=== PATIENT | female | born 1985 | race African-American/Black ===

== ENCOUNTER 2017-05-23 11:48 | Observation (INO) | payer SELFPAY ==
[2017-05-23] MEDS ORDERED: Mag-Al 1200 mg/1200 mg/30 ML UDCUP ONE (12:09)
[2017-05-23] MEDS ORDERED: Famotidine 20 MG TAB ONE (12:09)
[2017-05-23] MEDS ORDERED: Lidocaine Viscous Sol 2% 15 ml UD Cup ONE (12:09)
[2017-05-23 12:19] LABS: #Eosinphils 0.2 thou/uL (0.0-0.7); #Lymphocytes 1.4 thou/uL (1.20-3.40); #Monocytes 0.7 thou/uL (0.11-0.59); #Neutrophils 7.4 thou/uL (1.40-6.50); %Basophils 0.2 % (0.0-1.0); %Eosinophils 1.8 % (0.0-10.0); %Lymphocytes 14.8 % (21.0-51.0); %Monocytes 6.7 % (0.0-10.0); %Neutrophils 76.5 % (42.0-75.0); Hemoglobin 14.3 g/dL (12.0-16.0); Mean Corpuscular HGB CONC 33.2 g/dL (32.0-36.0); Mean Corpuscular Hemoglobin 30.5 pg (27.0-31.0); Mean Corpuscular Volume 91.7 fl (81.0-99.0); Mean Platelet Volume 7.4 fL (7.4-10.4); Platelet Count 264 thou/uL (130-400); RBC Distribution Width 11.4 % (11.5-14.5); White Blood Cell (WBC) Count 9.7 thou/uL (4.8-10.8)
[2017-05-23 12:36] LABS: Bilirubin Moderate (Negative); Blood, Urine Negative (Negative); Clarity CLOUDY (Clear); Glucose, Urine (Dipstick) Negative (Negative); Leukocyte Large (Negative); Nitrite Negative (Negative); Protein, Urine (Dipstick) Negative (Neg-Trace); Specific Gravity, Urine 1.024 (1.002-1.036)
[2017-05-23 12:37] LABS: BHCG - Serum Negative (NEGATIVE); Pregs Control Background? CLEAR/WHITE (CLR/WHITE); Pregs Control Bar Appear? YES (CONTROL BAR)
[2017-05-23 12:39] LABS: ALT (SGPT) 345 U/L (8-55); AST (SGOT) 496 U/L (5-34); Albumin 4.3 g/dL (3.5-5.0); Alkaline Phosphatase 131 U/L (40-150); Anion Gap 14 mmol/L (10-20); BUN (Urea Nitrogen) 8 mg/dL (7.0-18.7); Bilirubin, Total 2.7 mg/dL (0.2-1.2); Calc. Creatinine Clearance 0 mL/min (70-130); Calcium 9.3 mg/dL (7.8-10.44); Carbon Dioxide 23 mmol/L (22-29); Chloride 105 mmol/L (98-107); Estimated GFR-MDRD Greater than 90; Globulin 3.2 g/dL (2.4-3.5); Glucose 113 mg/dL (70-105); Lipase 26 U/L (8-78); Potassium 3.6 mmol/L (3.5-5.1); Protein, Total 7.5 g/dL (6.0-8.3); Sodium 138 mmol/L (136-145)
[2017-05-23 12:43] LABS: Bacteria/HPF 2+ HPF (None Seen); Hyaline Casts/LPF 4-6 HYALINE CAST LPF (0-3 Hyaline); Pathc Cast-AUWi Flag 1.01 (0-2.49)
[2017-05-23 12:53] LABS: RBC/HPF None Seen HPF (0-3); Renal Epithelial None Seen HPF (0-3); Transitional Epithelial NONE SEEN HPF (0-3)
--- NOTE | 2017-05-23 13:36 | ULT ---
RIGHT UPPER QUADRANT PAIN: HISTORY: Nausea. DATE: 05/23/17. FINDINGS: Multiple longitudinal and transverse images of the right upper quadrant of the abdomen are obtained u sing a multihertz curvilinear transducer. Real-time and color images are used to evaluate the right upper quadrant. The liver is unremarkable. The abdominal aorta and inferior vena cava are unremarkable. The gallbladder contains numerous echogenic and shadowing foci compatible with numerous gallstones. There may also be a possible gallbladder polyp present. No evidence of gallbladder wall thickening s een. The common bile duct is dilated measuring up to 9 mm. This may represent a distal common bile duct c alculus. Visualized portion of the pancreas is unremarkable. The right kidney is unremarkable. IMPRESSION: Cholelithiasis with possible choledocholithiasis. No significant evidence of ascites is seen. POS: ISIDRO
[2017-05-23] MEDS ORDERED: Iothalamate Meglumine 60% 50 ML VIAL FS ONE (14:00)
[2017-05-23] MEDS ORDERED: Bupivacaine/Epinephrine 0.25% 30 ML VIAL ONE (14:00)
[2017-05-23] MEDS ORDERED: Fentanyl 250 MCG/5 ML VIAL ONE (14:03)
[2017-05-23] MEDS ORDERED: CEFAZOLIN/Water 2 GM/20 ML SYRINGE ONE (14:34)
[2017-05-23] MEDS ORDERED: Midazolam HCl 2 mg/2 ml Vial ONE (14:47)
[2017-05-23] MEDS ORDERED: Ondansetron HCl/PF 4 MG/2 ML Vial IVP PRN (14:53)
[2017-05-23] MEDS ORDERED: HYDROmorphone 0.5 MG/0.5 ML SYRINGE ONE (14:53)
[2017-05-23] MEDS ORDERED: Promethazine HCl 25 MG/ML VIAL IM PRN (14:53)
[2017-05-23] MEDS ORDERED: Promethazine HCl 25 MG/ML VIAL SLOW IVP PRN (14:53)
[2017-05-23] MEDS ORDERED: PROPOFOL 200 MG/20 ML VIAL ONE (15:40)
[2017-05-23] MEDS ORDERED: Glycopyrrolate 0.2 MG/ML 5 ML SYRINGE ONE (15:40)
[2017-05-23] MEDS ORDERED: Succinylcholine Chloride 20 MG/ML 10 ml SYRINGE FS ONE (15:40)
[2017-05-23] MEDS ORDERED: Esmolol 100 MG/10 ML VIAL ONE (15:40)
[2017-05-23] MEDS ORDERED: Ondansetron HCl/PF 4 MG/2 ML Vial ONE (15:40)
[2017-05-23] MEDS ORDERED: Lidocaine 1% PF 5 ML VIAL ONE (15:40)
[2017-05-23] MEDS ORDERED: Dexamethasone 20 MG/5 ML VIAL ONE (15:40)
--- NOTE | 2017-05-23 16:43 | HP ---
CHIEF COMPLAINT: Abdominal pain. HISTORY OF PRESENT ILLNESS: Ms. Sheehan is a 31-year-old woman, who presented to the emergency room wi unrelenting epigastric pain radiating to her back. She had a previous episode in February, but thi s resolved on its own. The current episode woke her up at 3:00 a.m. and has been persistent since at time. She has had nausea, but no vomiting. No jaundice or icterus. The pain is made worse by mo ving around. Evaluation in the Emergency Room was positive for elevated LFTs and a dilated common bi le duct with gallstones in the gallbladder. The patient has received pain medication in the Emergenc y Room and is now feeling better. PAST MEDICAL HISTORY: None. PAST SURGICAL HISTORY: None. PSYCHIATRIC HISTORY: History of depression and anxiety with a suicidal gesture in 2012. SOCIAL HISTORY: She does not smoke, drink or use illicit drugs. FAMILY HISTORY: Diabetes and hypertension. Her aunt had heart problems and after gallbladder s urgery as a result of her heart disease. ALLERGIES: The patient has no known drug allergies. OUTPATIENT MEDICATIONS: Include Prozac daily. REVIEW OF SYSTEMS: Ten system review of systems is negative except per HPI. PHYSICAL EXAMINATION: VITAL SIGNS: Temperature 98.4, heart rate 100, blood pressure 118/68, respirations 20, 97% saturated on room air. GENERAL: Reveals a slightly anxious appearing young woman, in no acute distress. She is not flushed or toxic in appearance. She is not jaundiced or icteric. HEENT: Unremarkable. NECK: Supple, without lymphadenopathy or thyroid nodules. HEART: Regular in its rate and rhythm without murmurs, rubs or gallops. LUNGS: Clear to auscultation bilaterally with good air entry. She does not have any pain with deep inspiration. ABDOMEN: Soft, nontender and nondistended. She states that previously she was tender to palpation i n the epigastrium and right upper quadrant, but that has gone away. EXTREMITIES: Warm and well perfused without edema. NEUROLOGIC: No focal deficits. PSYCHIATRIC: Alert, oriented, and appropriate. LABORATORY AND X-RAY FINDINGS: White count is normal. Serum is negative. Electrolytes ar e unremarkable, but bilirubin is elevated at 2.7 and AST and ALT are elevated at 496 and 345. Ultras ound images are reviewed and I agree with the written report. She has stones in her gallbladder, but no wall thickening, sonographic Estrada sign or pericholecystic fluid to suggest acute cholecystitis. Her bile duct is dilated at 9 mm. ASSESSMENT AND PLAN: Cholelithiasis and possible choledocholithiasis. The patient's pain has resolv ed and she may have passed her stone. I have discussed her case with Dr. Garcia and he recommends lapa roscopic cholecystectomy first with cholangiogram and is available for immediate endoscopic retrograd e cholangiopancreatography if necessary. I discussed the diagnosis and treatment plan with the patie nt and her family. I explained the procedures of laparoscopic cholecystectomy with cholangiogram and also of endoscopic retrograde cholangiopancreatography and their inherent risks. Risks of gallbladd er surgery include but are not limited to bleeding; infection; risks of anesthesia; damage to nearby structures including bowel, liver and bile duct; need for open surgery; need for further procedures. Risk of endoscopic retrograde cholangiopancreatography include bleeding, infection, perforation, nee d further procedures and pancreatitis. The patient and her family understand and accept these risks and wish to proceed. All of their questions answered. Antibiotics will be ordered purification operator helper to the OR .
[2017-05-23] MEDS ORDERED: HYDROcodone/Acetaminophen 5/325 mg Tablet PO PRN (17:21)
[2017-05-23] MEDS ORDERED: Morphine 4 MG/ML VIAL SLOW IVP PRN ×2 (17:22→17:23)
[2017-05-23] MEDS ORDERED: Promethazine 25 MG TAB PO PRN ×2 (17:22)
--- NOTE | 2017-05-23 18:04 | RAD ---
CHOLANGIOGRAM IN SURGERY: Comparison: Gallbladder ultrasound 05-23-17. History: Cholelithiasis. FINDINGS/IMPRESSION: Two limited intraoperative fluoroscopic views from a cholangiogram in surgery were performed. Contras t was seen in the cystic duct and common bile duct. There is enlargement of the common bile duct with central intrahepatic biliary dilatation. There is no definite spillage of contrast into the duodenum and a stone in the distal common bile duct cannot be excluded. No obvious filling defect is seen wit hin the opacified portions of the common bile duct. POS: ISIDRO
[2017-05-23 18:51] VITALS: BMI 37.8
[2017-05-23] MEDS: HYDROcodone/Acetaminophen 5/325 mg Tablet PO PRN (22:58)
[2017-05-24 04:32] LABS: #Lymphocytes 0.9 thou/uL (1.20-3.40); #Monocytes 0.5 thou/uL (0.11-0.59); #Neutrophils 9.4 thou/uL (1.40-6.50); %Eosinophils 0.1 % (0.0-10.0); %Lymphocytes 8.2 % (21.0-51.0); %Monocytes 4.8 % (0.0-10.0); %Neutrophils 86.9 % (42.0-75.0); Hemoglobin 13.4 g/dL (12.0-16.0); Mean Corpuscular HGB CONC 33.4 g/dL (32.0-36.0); Mean Corpuscular Hemoglobin 30.8 pg (27.0-31.0); Mean Corpuscular Volume 92.3 fl (81.0-99.0); Mean Platelet Volume 7.4 fL (7.4-10.4); Platelet Count 280 thou/uL (130-400); RBC Distribution Width 11.4 % (11.5-14.5); Red Blood Cell (RBC) Count 4.37 mill/uL (4.20-5.40); White Blood Cell (WBC) Count 10.9 thou/uL (4.8-10.8)
[2017-05-24 04:55] LABS: ALT (SGPT) 317 U/L (8-55); AST (SGOT) 231 U/L (5-34); Albumin 3.9 g/dL (3.5-5.0); Alkaline Phosphatase 150 U/L (40-150); Anion Gap 11 mmol/L (10-20); BUN (Urea Nitrogen) 5 mg/dL (7.0-18.7); Bilirubin, Total 0.9 mg/dL (0.2-1.2); Calc. Creatinine Clearance 172 mL/min (70-130); Calcium 8.7 mg/dL (7.8-10.44); Carbon Dioxide 27 mmol/L (22-29); Chloride 106 mmol/L (98-107); Estimated GFR-MDRD Greater than 90; Globulin 2.9 g/dL (2.4-3.5); Glucose 148 mg/dL (70-105); Lipase 13 U/L (8-78); Protein, Total 6.8 g/dL (6.0-8.3); Sodium 139 mmol/L (136-145)
[2017-05-24] MEDS: HYDROcodone/Acetaminophen 5/325 mg Tablet PO PRN ×2 (07:31→12:46)
[2017-05-24 11:53] VITALS: BP 95/65; TEMP 98.2
--- NOTE | 2017-05-24 13:28 | CON ---
DATE OF CONSULTATION: 05/23/2017 HISTORY OF PRESENT ILLNESS: Patient is a 31-year-old -Malagasy female, who underwent a cholec ystectomy for symptomatic gallstones. Her liver tests were elevated and she underwent intraoperative cholangiogram. This showed a meniscus type of filling defect in the distal common duct and no contr ast into the duodenum. PAST MEDICAL HISTORY: Negative. PAST SURGICAL HISTORY: Negative. SOCIAL HISTORY: She does not smoke or drink. FAMILY HISTORY: Significant for diabetes mellitus. ALLERGIES: No known allergies. MEDICATIONS: Include, PROzac. REVIEW OF SYSTEMS: Unobtainable. PHYSICAL EXAMINATION: GENERAL: Shows an intubated, -Malagasy female in no acute distress. HEENT: Unremarkable except for orotracheal tube. NECK: Supple. CHEST: Clear. CARDIOVASCULAR: Regular rate and rhythm. ABDOMEN: Soft, nontender, without organomegaly or masses. She has 3 small incisions in her abdomen. RECTAL: Deferred. EXTREMITIES: Normal. NEUROLOGIC: Nonfocal. LABORATORY DATA: Shows a total bilirubin 27, AST of 496, ALT of 345, white blood cell count of 9.7, hemoglobin 14.3, hematocrit 43.1. ASSESSMENT: Choledocholithiasis by intraoperative cholangiogram. RECOMMENDATIONS: ERCP and stone extraction.
--- NOTE | 2017-05-26 12:02 | PDOC.OP ---
Operative Note - Operative Note Operative Note: PROCEDURE: Laparoscopic cholecystectomy with intraoperative cholangiogram SURGEON: Salvatore Colon M.D. DATE OF PROCEDURE:05/23/2017 PREOPERATIVE DIAGNOSIS: Cholelithiasis and cholecystitis, possible choledocholithiasis: POSTOPERATIVE DIAGNOSIS: Cholelithiasis and cholecystitis HISTORY: Patient with epigastric pain radiating to the back found to have elevated LFTs and stones on gallbladder ultrasound. Her bile duct was dilated. Her pain resolved after pain medication. After discussion with gastroenterology , recommendation was made to proceed with laparoscopic cholecystectomy with intraoperative cholangiogram, with plans for immediate postoperative ERCP if the cholangiogram is abnormal. FINDINGS: White walled hydropic gallbladder consistent with acute cholecystitis. 2 stones impacted in the cystic duct and one stone in the distal common bile duct. PROCEDURE IN DETAIL: After informed consent was obtained and appropriate preoperative antibiotics were administered, the patient was taken to the operating room and placed in the supine position and general endotracheal anesthesia was administered. The stomach was decompressed with an OG tube and the abdomen was prepped and draped in standard sterile fashion. Local anesthesia was infused to the skin and subcutaneous tissues at the umbilical level. A transverse skin incision was made. The fascia was elevated and a Veress needle was placed into the abdominal cavity without difficulty. Opening pressure was less than 5 and carbon dioxide gas easily insufflated to an intra- abdominal pressure of 15, which the patient tolerated well. The Veress needle was withdrawn and a [place] port advanced under direct vision. The abdominal cavity was carefully examined. There was no evidence of Veress needle or of trocar injury. Local anesthesia was infused to the skin and subcutaneous tissues at the epigastric, right upper quadrant, and right lateral abdominal sites and trocars were placed under direct vision of the laparoscope. The fundus of the gallbladder was too taut to grasp the gallbladder was aspirated with removal of about 20 mL's of colorless hydropic bile. The fundus was then able to be grasped and retracted superiorly. The infundibulum was grasped and retracted laterally. The serosa was stripped inferiorly at the level of the neck of the gallbladder exposing the cystic duct and artery which were traced clearly to their insertion in the gallbladder. These were somewhat obscured by a large lymph node of [place] so this was resected and passed from the field. The cystic duct was then dissected free circumferentially and the cystic duct was clipped at the level of the neck of the gallbladder. The cystic artery was clipped but not divided. An incision was made in the cystic duct inferior to the clip and the cystic duct was palpated with 2 stones extruded. There was then flow of bile from the cystic duct with no other stones palpable.. A cholangiogram catheter was introduced and placed into the cystic duct and secured with a clamp. A cholangiogram was obtained which showed an adequate length of cystic duct. There was normal filling of the common bile duct with no flow of contrast into the duodenum and a meniscus sign in the distal common bile duct. Glucagon was administered and allowed to circulate for 3 minutes following which the duct was flushed and a second cholangiogram obtained with the same result. There was normal retrograde flow into the common hepatic duct beyond the level of the bifurcation without filling defects. The cholangiogram catheter was removed and the cystic duct clipped below the incision in the cystic duct. The cystic duct was divided between these clips and the previously placed clip. The cystic artery was divided between the previously placed clips. The gallbladder was then dissected free of the gallbladder bed using hook electrocautery. Prior to complete removal of the gallbladder from the gallbladder bed, the area of the cystic duct and artery stumps was examined. The clips were in good position completely across these structures and there was no bleeding and no leakage of bile. The gallbladder was then placed into an EndoCatch bag and drawn out through the epigastric incision. The epigastric trocar was replaced and the operative site easily irrigated to clear. There was no significant bleeding or spillage of bile. The epigastric trocar was removed and the fascia closed under direct laparoscopic vision with a 0 Vicryl suture on a GraNee needle in a [id number] manner with excellent technical result. The right upper quadrant and right lateral abdominal trocars were removed and hemostasis verified. Carbon dioxide gas was allowed to desufflate through the umbilical trocar which was then removed. The skin incisions were closed with 4- 0 subcuticular Monocryl sutures and Dermabond dressings were placed. The patient was extubated and taken to the endoscopy suite for immediate ERCP in good condition. There were no complications. ESTIMATED BLOOD LOSS: Minimal. SPECIMEN : Gallbladder and contents.
== END 2017-05-24 15:14 | disposition home or self-care (01) ==
LOC: ERS 11:48 → SDC 14:23 → SURG B 15:05
PROVIDERS: ADMIT Surgery; ATTEND Surgery
PROC: 0FT44ZZ Resection of Gallbladder, Percutaneous Endoscopic Approach (ICD-10-PCS; principal; 2017-05-23)
PROC: BF101ZZ Fluoroscopy of Bile Ducts using Low Osmolar Contrast (ICD-10-PCS; 2017-05-23)
DX: K80.64 Calculus of gallbladder and bile duct with chronic cholecystitis without obstruction (principal); F32.9 Major depressive disorder, single episode, unspecified; F41.9 Anxiety disorder, unspecified; Z91.5 Personal history of self-harm; Z79.899 Other long term (current) drug therapy
CPT/HCPCS: 36415; 47532; 74330; 76705; 80053; 81003; 81015; 83690; 84703; 85025; 88304; 93005; G0378; J1100; J1170; J1610; J2001; J2250; J2405; J2704; J3010; Q9961

== ENCOUNTER 2018-03-14 15:57 | Emergency (ER) | payer SELFPAY ==
[2018-03-14 16:38] LABS: #Basophils 0.1 thou/uL (0.0-0.2); #Eosinphils 0.2 thou/uL (0.0-0.7); #Lymphocytes 2.5 thou/uL (1.20-3.40); #Monocytes 0.5 thou/uL (0.11-0.59); #Neutrophils 6.4 thou/uL (1.40-6.50); %Basophils 0.7 % (0.0-1.0); %Eosinophils 2.5 % (0.0-10.0); %Lymphocytes 25.4 % (21.0-51.0); %Neutrophils 66.5 % (42.0-75.0); Hemoglobin 14.3 g/dL (12.0-16.0); Mean Corpuscular HGB CONC 33.4 g/dL (32.0-36.0); Mean Corpuscular Hemoglobin 30.8 pg (27.0-31.0); Mean Corpuscular Volume 92.4 fL (78.0-98.0); Mean Platelet Volume 7.7 fL (7.4-10.4); Platelet Count 257 thou/uL (130-400); RBC Distribution Width 11.7 % (11.5-14.5); Red Blood Cell (RBC) Count 4.62 mill/uL (4.20-5.40); White Blood Cell (WBC) Count 9.7 thou/uL (4.8-10.8)
[2018-03-14 17:00] LABS: ALT (SGPT) 17 U/L (8-55); AST (SGOT) 15 U/L (5-34); Albumin 4.1 g/dL (3.5-5.0); Alkaline Phosphatase 86 U/L (40-150); Anion Gap 14 mmol/L (10-20); BUN (Urea Nitrogen) 7 mg/dL (7.0-18.7); Bilirubin, Total 0.2 mg/dL (0.2-1.2); Calc. Creatinine Clearance 0 mL/min (70-130); Calcium 9.1 mg/dL (7.8-10.44); Carbon Dioxide 22 mmol/L (22-29); Chloride 108 mmol/L (98-107); Estimated GFR-MDRD Greater than 90; Globulin 3.3 g/dL (2.4-3.5); Glucose 153 mg/dL (70-105); Potassium 3.6 mmol/L (3.5-5.1); Protein, Total 7.4 g/dL (6.0-8.3); Sodium 140 mmol/L (136-145)
[2018-03-14 18:47] LABS: Bilirubin Negative (Negative); Blood, Urine Negative (Negative); Clarity CLEAR (Clear); Glucose, Urine (Dipstick) Negative (Negative); Leukocyte Moderate (Negative); Nitrite Negative (Negative); Protein, Urine (Dipstick) Negative (Neg-Trace); Specific Gravity, Urine 1.012 (1.002-1.036); Urobilinogen 0.2 mg/dL (0.2-1.0); pH, Urine 6.5 (5.0-9.0)
[2018-03-14 18:49] LABS: Pregnancy Test - Urine (BHCG) Negative (Negative); Pregu Control Background? CLEAR/WHITE (CLR/WHITE); Pregu Control Bar Appear? YES (CONTROL BAR); Specific Gravity 1.012 (1.002-1.036)
[2018-03-14 18:51] LABS: Bacteria/HPF 1+ HPF (None Seen); Hyaline Casts/LPF 0-3 HYALINE CAST LPF (0-3 Hyaline); Pathc Cast-AUWi Flag 0.14 (0-2.49); RBC/HPF 0-3 HPF (0-3)
== END 2018-03-14 19:13 | disposition home or self-care (01) ==
LOC: ERS 15:57
DX: N39.0 Urinary tract infection, site not specified (principal); F32.9 Major depressive disorder, single episode, unspecified; Z79.899 Other long term (current) drug therapy; G43.909 Migraine, unspecified, not intractable, without status migrainosus; F41.9 Anxiety disorder, unspecified
CPT/HCPCS: 36415; 80053; 81003; 81015; 81025; 85025; 87086; 93005